=== PATIENT | female | born 1975 | race Caucasian/White ===

== ENCOUNTER → 2018-05-03 | Day surgery (SDC) | payer OTHER ==
--- NOTE | 2018-05-03 11:58 | OP ---
DATE OF OPERATION: 05/03/2018 PREOPERATIVE DIAGNOSIS: Abnormal right mammography. POSTOPERATIVE DIAGNOSIS: Abnormal right mammography. PROCEDURE: Right stereotactic needle biopsy with clips. SURGEON: Gaby Mcfadden MD ANESTHESIA: Local. COMPLICATIONS: None. This is a sterile procedure. INDICATION: Patient presented for screening mammography that noted a clustering area of indeterminate calcifications on the upper outer, slightly retroareolar right breast and was recommended needle biopsy. The procedure was discussed with her, including the need for a clip. PROCEDURE IN DETAIL: Patient brought to [facility] in [place], laid prone on the Lor[place] table. Using the lateral approach, the calcifications were identified. A stereo pair was obtained. A target was chosen. There was a positive stroke margin. Using Betadine and 1% lidocaine, a 10-gauge Suros device was used to take several cores from this area. Cores showed calcification within them. These were handled in the usual calcification protocol. A T-shaped clip was deployed in the area. Hemostasis was assured with direct pressure. The incision was closed with Steri-Strips. She tolerated the procedure well, left the breast imaging center in good condition. GABY MCFADDEN M.D. [id number]
--- NOTE | 2018-05-04 12:29 | PATH ---
Surgical Pathology Report Patient Name: SAAD CALIX [facility]. Rec. #: [id number] /Age/Gender: 1975 (Age: 42) / F Account: [id number] Location: [facility] Taken: 05/03/2018 Received: 05/03/2018 Reported: 05/04/2018 Physicians: Gaby Rosenthal M.D. Specimen(s) Received A: RIGHT BREAST SPECIMEN WITH CALCIFICATIONS B: RIGHT BREAST SPECIMEN WITHOUT CALCIFICATIONS Clinical History Mammographic findings: Suspicious microcalcification Final Diagnosis A. BREAST, RIGHT, WITH CALCIFICATIONS, STEREOTACTIC BIOPSY: BENIGN BREAST TISSUE SHOWING FIBROCYSTIC CHANGES INCLUDING CYSTIC APOCRINE METAPLASIA, FOCAL USUAL DUCTAL HYPERPLASIA (UDH) AND CALCIFICATIONS IN ASSOCIATION WITH CYST CONTENTS. FRAGMENT OF UNREMARKABLE SKIN. B. BREAST, RIGHT, WITHOUT CALCIFICATIONS, STEREOTACTIC BIOPSY: BENIGN BREAST TISSUE SHOWING FIBROCYSTIC CHANGES INCLUDING CYSTIC APOCRINE METAPLASIA AND FOCAL USUAL DUCTAL HYPERPLASIA (UDH). FRAGMENT OF UNREMARKABLE SKIN. Electronically Signed Janet Roman M.D. Gross Description A. Received in formalin labeled "right breast specimen with calcifications" are multiple cores of herrera to yellow cylindrical portions of fibroadipose tissue ranging from 0.3-1.5 cm in length and averaging 0.2 cm in diameter. The specimen is entirely submitted in 2 cassettes. B. Received in formalin labeled "right breast specimen without calcifications" are multiple cores herrera to yellow cylindrical portions of fibroadipose tissue ranging from 0.2-1.3 cm in length and averaging 0.2 cm in diameter. The specimen is entirely submitted in 2 cassettes. Time to formalin fixation: 6 minutes Total formalin fixation time: 9 to 10 hours [place]/05/03/2018 [place]/05/03/2018
== END | disposition home or self-care (01) ==
LOC: FMAMMOTONE 09:28
PROVIDERS: ATTEND Surgery
PROC: 0HBT0ZX Excision of Right Breast, Open Approach, Diagnostic (ICD-10-PCS; principal; 2018-05-03)
DX: N60.11 Diffuse cystic mastopathy of right breast (principal); N60.81 Other benign mammary dysplasias of right breast; N64.89 Other specified disorders of breast; R92.8 Other abnormal and inconclusive findings on diagnostic imaging of breast
CPT/HCPCS: 19081; 87899; 88305-TC; A4648